=== PATIENT | female | born 1970 | race Caucasian/White ===

== ENCOUNTER 2021-03-06 17:59 | Emergency (ER) | payer MEDICARE, MEDICAID, SELFPAY ==
--- NOTE | ~2021-03-06 | XR_ITS ---
XR hip LT 2V w AP pelvis DATE: 03/06/2021 20:26 INDICATION: Fall. Left hip pain. TECHNIQUE: AP and lateral views of left hip. AP pelvis COMPARISON: None FINDINGS: No pelvic or left hip fracture or hip dislocation is detected. The pubic symphysis and left sacroiliac joint are intact. Status post posterior and interbody spinal fusion at L4-5. Battery pack overlies the right lower abdomen. IMPRESSION: No pelvic or left hip fracture Reviewed, dictated and finalized at location A.
[2021-03-06 18:28] VITALS: BP 105/70; PULSE 78; RESP 14; TEMP 36.2; O2SAT 99
[2021-03-06 19:12] VITALS: BP 105/56; PULSE 98; RESP 14; O2SAT 97
--- NOTE | 2021-03-06 21:01 | ED.FALL ---
HPI - Fall General Chief Complaint: Fall Stated Complaint: fall, L hip pain Time Seen by Provider: 03/06/21 19:13 Source: patient Mode of arrival: ambulatory Limitations: no limitations History of Present Illness HPI Narrative: Patient is a 50-year-old female who presents complaining of left hip pain. She reports fall at home on wood floor. She reports pain to hip, increases with ambulation. She denies other injuries. She denies all other complaints at this time. complaint: fall Related Data Home Medications Medication Instructions Recorded Confirmed albuterol sulfate 90 mcg/actuation 2 puff INHALATION Q4-6H PRN gm 01/23/20 01/24/21 aerosol inhaler gabapentin 300 mg capsule 300 mg PO BID 04/24/20 01/24/21 oxycodone 10 mg tablet 10 mg PO Q8H PRN 04/24/20 01/24/21 morphine 30 mg tablet,oral ONLY mg PO .qd tablet 01/24/21 01/24/21 (not feeding tubes) Allergies Allergy/AdvReac Type Severity Reaction Status Date / Time No Known Allergies Allergy Verified 01/24/21 09:25 Review of Systems Review of Systems: Narrative: CONSTITUTIONAL: Denies fever, chills, or sweats. EYES: Denies visual changes, redness, or discharge. ENT: Denies rhinorrhea, congestion, sore throat, or otalgia. CARDIOVASCULAR: Denies chest pain, palpitations, or edema. RESPIRATORY: Denies cough or dyspnea. GASTROINTESTINAL: Denies abdominal pain, nausea, vomiting, or diarrhea. GENITOURINARY: Denies dysuria or hematuria. SKIN: Denies rash or itching. MUSCULOSKELETAL: Reports left hip pain NEUROLOGIC: Denies headache, numbness, dizziness, or weakness. PSYCHIATRIC: Denies anxiety or depression. [facility] Past Medical History Medical History Abnormal liver function Abscess Abscess of buttock Acute bronchiolitis due to other specified organisms Acute recurrent sinusitis Acute thoracic back pain Aspiration pneumonia of both lower lobes Bacterial conjunctivitis Benign hypertension Bilateral edema of lower extremity BMI 50.0-59.9, adult Body mass index (BMI) of 50-59.9 in adult (08/24/19) Boil of buttock Candidiasis of vulva and vagina Cellulitis, abdominal wall Community acquired pneumonia Cough Cyst of buttocks Dietary counseling and surveillance (07/24/16) Elevated ALT measurement Elevated fasting blood sugar Epidermoid cyst of labia majora Heart palpitations Hernia Hypercholesterolemia Leg swelling Mid back pain Mixed hyperlipidemia Morbid (severe) obesity due to excess calories Morbid obesity with BMI of 60.0-69.9, adult Nail thickening RAPHAEL (obstructive sleep apnea) Shortness of breath Skin candidiasis Tobacco abuse Tobacco abuse Tobacco abuse Upper respiratory tract infection Urinary incontinence Wheezing Family History Family History Grandparent Hypertension Family history of lung cancer Family history of coronary artery disease Diabetes mellitus Mother Cerebrovascular accident Father Family history of diabetes mellitus in first degree relative Sibling HIV (human immunodeficiency virus infection) Hypertension Cancer Other Family history of cardiovascular disease Family history of malignant neoplasm Social History Social History Smoking packs per day: 1.0 Smoking cigarettes per day: 20.0 Years smoked: 13 Smoking pack-years: 13.00 Smoking status: Current every day smoker Tobacco type: cigarettes Second hand tobacco smoke exposure: Yes Alcohol intake: never Substance use: never Substance use type: does not use Additional occupation/education comments: Disability Gender identity (if verbalized by the patient): Female Comments At the time of signature, I have reviewed and agree with nursing past medical, surgical, social, and family history unless otherwise noted. Please see nursing chart for further informa
[2021-03-06 21:23] VITALS: BP 108/67; PULSE 92; RESP 17; O2SAT 99
== END 2021-03-06 21:25 | disposition home or self-care (01) ==
PROVIDERS: Emergency Provider Nurse Practitioner; PCP Family Medicine
DX: M25.552 Pain in left hip (principal); I10 Essential (primary) hypertension; E78.2 Mixed hyperlipidemia; E66.01 Morbid (severe) obesity due to excess calories; Z68.42 Body mass index [BMI] 45.0-49.9, adult; G47.33 Obstructive sleep apnea (adult) (pediatric); F17.210 Nicotine dependence, cigarettes, uncomplicated; W18.30XA Fall on same level, unspecified, initial encounter
CPT/HCPCS: 73502; 99284

== ENCOUNTER 2021-04-26 10:53 | Outpatient (CLI) | payer MEDICARE, MEDICAID, SELFPAY ==
--- NOTE | ~2021-04-26 | XR_ITS ---
EXAMINATION: XR foot RT min 3V EXAM DATE: 04/26/2021 11:12 INDICATION: No known recent injury provided at this time. Pain of the right foot. TECHNIQUE: Right foot dorsoplantar, lateral and oblique projections obtained and reviewed. Compariso n is made to prior examination from 06/09/2016. FINDINGS: Right metatarsal bones unremarkable. Small to moderate-sized calcaneal spur posteriorly. No periosteal reaction or band of sclerosis to suggest subacute stress fracture. There are no bony er osions identified. There are no acute fractures identified. Nonspecific diffuse foot and ankle and lo wer leg swelling. There is mild to moderate ankle, mild polyarticular midfoot primary osteoarthritis. IMPRESSION: 1. Diffuse soft tissue swelling. 2. Osteoarthritis. Reviewed, dictated and finalized at location A.
== END 2021-04-26 10:54 | disposition home or self-care (01) ==
LOC: ANHIMG 11:00
PROVIDERS: PCP Family Medicine; Visit Provider Nurse Practitioner Family
DX: M79.89 Other specified soft tissue disorders (principal); M19.071 Primary osteoarthritis, right ankle and foot
CPT/HCPCS: 73630